=== PATIENT | female | born 1955 | race Caucasian/White ===

== ENCOUNTER 2018-08-22 15:25 | Emergency (ER) | payer BC, OTHER ==
[2018-08-22 15:46] VITALS: BP 143/66
--- NOTE | 2018-08-22 15:59 | UC ---
Hip/Pelvis Pain - HPI Summary HPI Summary: Patient was catching another individual that was falling, felt a pop in her left hip and HAS NOT BEEN ABLE TO SIT ON THAT SIDE SINCE. - History Of Current Complaint Chief Complaint: UCTrauma Stated Complaint: BUTTOCK INJURY Time Seen by Provider: 08/22/18 15:31 Hx Obtained From: Patient ?: No Onset/Duration: Sudden Onset, Lasting Days - 2 Timing: Constant Severity Initially: Severe Severity Currently: Severe Pain Intensity: 8 Location: Discrete At: - left ischium Character Of Pain: Aching Aggravating Factor(s): Other - pressure and movement Alleviating Factor(s): Position - Allergies/Home Medications Allergies/Adverse Reactions: Allergies Allergy/AdvReac Type Severity Reaction Status Date / Time MS Codeine [Codeine] Allergy Mild Vomiting Verified 05/08/16 09:54 MS Gadoteridol AdvReac Mild Itching, Verified 05/08/16 09:54 [From [facility]] hives PMH/Surg Hx/FS Hx/Imm Hx Previously Healthy: Yes - Surgical History Surgical History: Yes Surgery Procedure, Year, and Place: 1978 BREAST AUGMENTATION AT AGE 18 ( FOR COSMETIC PURPOSES),. 1999 RIGHT INGUINAL HERNIA REPAIR,. 2002 THYROIDECTOMY,. 2006 RIGHT KNEE SURGERY,. 2008 GASTRIC BYPASS SURGERY, 2016 Complete Hysterectomy - Family History Known Family History: Positive: Hypertension - Social History Alcohol Use: often nightly Alcohol Amount: Alcohol problem Substance Use Type: None Smoking Status (MU): Never Smoked Tobacco Review of Systems All Other Systems Reviewed And Are Negative: Yes Constitutional: Positive: Negative Skin: Positive: Negative Eyes: Positive: Negative ENT: Positive: Negative Respiratory: Positive: Negative Cardiovascular: Positive: Negative Gastrointestinal: Positive: Negative Genitourinary: Positive: Negative Motor: Positive: Negative Neurovascular: Positive: Negative Musculoskeletal: Positive: Arthralgia, Myalgia Neurological: Positive: Negative Psychological: Positive: Negative Is Patient Immunocompromised?: No Physical Exam Triage Information Reviewed: Yes Appearance: Well-Appearing, Well-Nourished, Pain Distress Vital Signs: Initial Vital Signs Temp 97.8 F 08/22/18 15:42 Pulse 77 08/22/18 15:42 Resp 16 08/22/18 15:42 BP 143/66 08/22/18 15:42 Pulse Ox 98 08/22/18 15:42 Vital Signs Reviewed: Yes Eye Exam: Normal ENT Exam: Normal Dental Exam: Normal Neck exam: Normal Respiratory Exam: Normal Respiratory: Positive: Chest non-tender, Lungs clear, Normal breath sounds Cardiovascular Exam: Normal Cardiovascular: Positive: RRR, No Murmur, Pulses Normal Abdominal Exam: Normal Abdomen Description: Positive: Nontender, No Organomegaly, Soft Bowel Sounds: Positive: Present Musculoskeletal: Positive: Strength Intact, ROM Limited @ - due to pain in hip flextion, lumbar flexion Neurological Exam: Normal Psychological Exam: Normal Psychological: Positive: Consolable Skin Exam: Normal Hip Injury Course/Dx - Course Course Of Treatment: hx obtained, exam performed ,meds reviewed, xray obtained. - Differential Dx/Diagnosis Differential Diagnosis/HQI/PQRI: Dislocation, Fracture, Sprain, Strain Provider Diagnosis: Muscle strain of left gluteal region Discharge - Sign-Out/Discharge Documenting (check all that apply): Patient Departure All imaging exams completed and their final reports reviewed: Yes - Discharge Plan Condition: Stable Disposition: HOME Patient Education Materials: Muscle Strain (DC) Referrals: Mirela Triana [Primary Care Provider] - Raheem Ang MD [Medical Doctor] - Additional Instructions: 1. Heat the area and do light stretching frequently 2. Ibuprofen and tylneol for pain and inflammation 3. If not improving in the next week please follow up with orthopedics - Billing Disposition and Condition Condition: STABLE Disposition: Home - Attestation Statements Provider Attestation: I was available for consult. This patient was seen by the [facility]. The patient was not presented to , seen by or examined by pr -Sujatha Platt MD
== END 2018-08-22 16:32 | disposition home or self-care (01) ==
LOC: UCCORT 15:25
DX: S73.199A Other sprain of unspecified hip, initial encounter (principal); X50.0XXA Overexertion from strenuous movement or load, initial encounter; Y93.89 Activity, other specified; Y92.9 Unspecified place or not applicable; Z88.5 Allergy status to narcotic agent; Z88.8 Allergy status to other drugs, medicaments and biological substances
CPT/HCPCS: 99211; G0463

== ENCOUNTER 2020-05-19 07:12 | Observation (INO) ==
[~2020-05-19 07:12] MED LIST: Buffered Lidocaine 1% SYRIN 1 ml INTRADERM ONE; Dexamethasone IV 4 MG/ML VIAL 1 ml VIAL ONE; Lactated Ringers 1000 ml BAG 1,000 ML IV SCH; Lidocaine 2% PF 5 ML VIAL ONE; Midazolam 2 mg/2 ml VIAL 1 mg/ml 2 ml VIAL (2 mg) ONE; Ondansetron 4 mg VIAL 2 MG/ML 2 ml VIAL ONE
[2020-05-19] MEDS ORDERED: ceFAZolin 2 GM PREMIX 2 GM/50 ML BAG ONE (07:33)
[2020-05-19] MEDS ORDERED: Buffered Lidocaine 1% SYRIN 1 ml INTRADERM ONE (07:33)
[2020-05-19] MEDS ORDERED: ROPIVACAINE 5 MG/ML 30 ML BTL (0.5%) ONE ×2 (08:18→08:32)
[2020-05-19] MEDS ORDERED: Phenylephrine IV 10 MG/ML 1 ml VIAL ONE (08:20)
[2020-05-19] MEDS ORDERED: Midazolam 2 mg/2 ml VIAL 1 mg/ml 2 ml VIAL (2 mg) ONE (08:40)
[2020-05-19] MEDS ORDERED: Propofol 10 MG/ML 20 ML BTL ONE (10:08)
[2020-05-19] MEDS ORDERED: Naloxone 0.4 mg VIAL 0.4 mg/ml 1 ml VIAL IV PRN (10:28)
[2020-05-19] MEDS ORDERED: diPHENhydraMINE 25 mg TAB PO PRN (11:27)
[2020-05-19] MEDS ORDERED: Lactulose 30 ml UDC PO PRN (11:27)
[2020-05-19] MEDS ORDERED: diPHENhydraMINE IV 50 MG/ML 1 ml VIAL (BENADRYL) IV PRN (11:27)
[2020-05-19] MEDS ORDERED: oxyCODONE/Acetamin 5/325 mg TAB PO PRN (11:27)
[2020-05-19] MEDS ORDERED: Magnesium Hydroxide LIQ 30 ML UDC PO PRN (11:27)
[2020-05-19] MEDS: Lactated Ringers 1000 ml BAG 1,000 ML IV SCH (12:43)
[2020-05-19] MEDS ORDERED: Morphine 2 MG/ML SYRINGE ONE (13:06)
[2020-05-19] MEDS: oxyCODONE/Acetamin 5/325 mg TAB PO PRN ×3 (13:09→22:36)
[2020-05-19] MEDS: Ondansetron 4 mg VIAL 2 MG/ML 2 ml VIAL IV PRN ×2 (13:11→19:14)
[2020-05-19] MEDS ORDERED: Morphine 2 MG/ML SYRINGE IV ONE (14:00)
[2020-05-19] MEDS ORDERED: Morphine 10 MG/ML VIAL (1 ml) ONE (14:39)
[2020-05-19] MEDS: ceFAZolin 1 GM ADVAN 1 GM in NS 0.9% 50 ML 50 ML IVPB SCH (16:51)
[2020-05-19] MEDS: HYDROmorphone 1 MG/1 ML SYRINGE IV SLOW PU PRN ×3 (17:09→23:30)
[2020-05-19] MEDS: Magnesium Hydroxide LIQ 30 ML UDC PO SCH (21:03)
[2020-05-20] MEDS: ceFAZolin 1 GM ADVAN 1 GM in NS 0.9% 50 ML 50 ML IVPB SCH ×2 (01:19→09:54)
[2020-05-20] MEDS: Lactated Ringers 1000 ml BAG 1,000 ML IV SCH (02:49)
[2020-05-20 03:08] VITALS: BP 141/68
[2020-05-20] MEDS: HYDROmorphone 1 MG/1 ML SYRINGE IV SLOW PU PRN (04:06)
[2020-05-20] MEDS: oxyCODONE/Acetamin 5/325 mg TAB PO PRN ×2 (05:46→09:53)
[2020-05-20 06:32] LABS: Hematocrit 31 % (35-47); Hemoglobin 10.3 g/dL (12.0-16.0); Mean Platelet Volume 8.7 fL (7.4-10.4); Platelet Count 235 10^3/uL (150-450)
[2020-05-20 06:48] LABS: BUN/Creatinine Ratio 14.5 (8-20); Calcium 8.8 mg/dL (8.6-10.3); EGFR African American 92.7 (>60); EGFR Non-African American 76.6 (>60); Potassium 3.9 mmol/L (3.5-5.0)
[2020-05-20] MEDS: Ondansetron 4 mg VIAL 2 MG/ML 2 ml VIAL IV PRN (08:46)
[2020-05-20] MEDS ORDERED: Vitamin THERAPEUTIC TAB PO SCH (09:00)
[2020-05-20] MEDS ORDERED: Cholecalciferol (VIT D3) 1,000 unit TAB PO SCH (09:00)
[2020-05-20] MEDS: Magnesium Hydroxide LIQ 30 ML UDC PO SCH (09:53)
[2020-05-30] MEDS ORDERED: Cyanocobalamin INJ 1,000 MCG/ML VIAL 1 ML VIAL IM SCH (09:00)
== END 2020-05-20 15:15 | disposition home or self-care (01) ==
LOC: INTOOBSV 07:12 → AA 07:12 → SSU 11:27
PROVIDERS: ADMIT Orthopaedic Surgery Adult Reconstructive Orthopaedic Surgery; ATTEND Orthopaedic Surgery Adult Reconstructive Orthopaedic Surgery